=== PATIENT | male | born 1995 | race Caucasian/White ===

== ENCOUNTER 2017-09-30 15:05 | Emergency (ER) | payer BC ==
[2017-09-30] MEDS: DERMABOND TOPICAL SKIN ADHESIVE TOP (17:46)
== END 2017-09-30 17:51 | disposition home or self-care (01) ==
LOC: M ED 15:05
DX: S61.213A Laceration without foreign body of left middle finger without damage to nail, initial encounter (principal); W45.8XXA Other foreign body or object entering through skin, initial encounter; Y92.009 Unspecified place in unspecified non-institutional (private) residence as the place of occurrence of the external cause
CPT/HCPCS: 12001